=== PATIENT | male | born 1985 | race American Indian/Alaskan Native ===

== ENCOUNTER 2020-02-26 22:06 | Emergency (ER) | payer MEDICAID ==
[~2020-02-26] VITALS: Ht 170.2 cm; Wt 75.3 kg
[2020-02-26 22:08] VITALS: BP 141/90
[2020-02-26 22:09] VITALS: BP 141/90
--- NOTE | 2020-02-26 22:09 | NUR ---
34 Y/O MALE STEFANIE PRESENTED TO ED C/O ETOH . PT WAS PICKED UP AT [facility] , PER EMS PT WAS ALREADY DRUNK BEFORE ARRIVING AT [facility] AND PROCEEDED TO DRINK MORE. PT OBSERVED GCS 12 , A/O X 1 , PERRL 8MM. PT SPEECH SLURRED AND MUMBLING. PT VSS , NO ACUTE DISTRESS NOTED AT THIS TIME. PT POOR HISTORIAN AT THIS TIME. PT PLACED ON PORTAINER OPERATOR , PULSE OX AND BP CUFF. VSS , RR EVEN AND UNLABORED. PT SITTING UP IN BED, LOCKED AND IN LOWEST POSITION ,HOB ELEVATED , SIDE RAIL X2 FOR PT SAFETY. ERMD MADE AWARE OF PT STATUS. PMH: UNABLE TO OBTAIN AX: UNABLE TO OBTAIN
--- NOTE | 2020-02-26 22:09 | NUR ---
PT BIBA TO ER BED 3.
--- NOTE | 2020-02-26 22:37 | NUR ---
SPOKE W/ COUSIN ABBY WOODS - SHE STATES HE TOOK Buspirone AT 1630 AND THEN PROCEEDED TO HAVE 2 BEERS. SHE STATES THEY WENT TO A [facility] AND HER COUSIN TOOK OFF AND THEY COULDN'T FIND HIM. SECURITY FOUND HIM ALTERED AT THE [facility]. PT STATES THE ONLY MEDICAL CONDITION PT HAS IS ANXIETY.
--- NOTE | 2020-02-26 22:39 | NUR ---
IF PT IS UP FOR DISCHARGE CALL REKHA MORA AT [phone]
[2020-02-27] MEDS ORDERED: NALOXONE PFS 2 MG/2 ML SYR ONE (00:07)
--- NOTE | 2020-02-27 02:16 | NUR ---
PATIENT ELOPED FROM FACILITY. DISCHARGE INSTRUCTIONS NOT GIVEN TO PATIENT. DR. Lentz NOTIFIED.
== END 2020-02-27 02:13 | disposition left against medical advice (07) ==
LOC: MED 22:06
DX: F10.129 Alcohol abuse with intoxication, unspecified (principal)
CPT/HCPCS: 99283; J2310